=== PATIENT | male | born 1955 | race Caucasian/White ===

== ENCOUNTER 2019-01-19 17:54 | Emergency (ER) | payer BC ==
[2019-01-19 18:26] VITALS: BP 155/93
--- NOTE | 2019-01-19 18:38 | UC ---
General HPI - HPI Summary HPI Summary: Pt presents with c/o of multiple issues. 1. c/o gradual onset of swelling to right side of face and lower lip that began this morning and has progressed throughout the day. The pt denies coming in contact with any know allergen, denies, difficulty swallowing, or breathing. 2. Pt c/o of painful "lump" in between "butt cheeks" that began ~ 2-3 days ago. Pt reports that he recently traveled by airplane to [place] and sat for prolonged periods of time. 3. Pt is concerned that he may have been exposed to a food parasite because he ate undercooked pork while traveling to [place] and has had an episode of diarrhea, fever, and abdominal pain. - History of Current Complaint Chief Complaint: UCGeneralIllness Stated Complaint: SKIN CONCERN,SWOLLEN LIP, FATIGUE Time Seen by Provider: 01/19/19 18:19 Hx Obtained From: Patient Onset/Duration: Gradual Onset, Lasting Days, Still Present Timing: Constant Onset Severity: Mild Current Severity: Moderate Pain Intensity: 1 Associated Signs & Symptoms: Positive: Abdominal Pain, Diarrhea, Other - lower lip swelling, painful mass in gluteal fold/cleft - Allergy/Home Medications Allergies/Adverse Reactions: Allergies Allergy/AdvReac Type Severity Reaction Status Date / Time No Known Allergies Allergy Verified 01/19/19 18:26 Home Medications: Home Medications Multivitamin [Multivitamins] 01/19/19 [History] PMH/Surg Hx/FS Hx/Imm Hx Previously Healthy: Yes - Surgical History Surgical History: Yes Surgery Procedure, Year, and Place: mole removal - Family History Known Family History: Positive: Cardiac Disease - Social History Occupation: Retired Lives: With Family Alcohol Use: None Substance Use Type: None Smoking Status (MU): Never Smoked Tobacco Have You Smoked in the Last Year: No Review of Systems All Other Systems Reviewed And Are Negative: Yes Constitutional: Positive: Fever - resolved Skin: Positive: Negative Eyes: Positive: Negative ENT: Positive: Other - lower lip swelling Respiratory: Positive: Negative Cardiovascular: Positive: Negative Gastrointestinal: Positive: Abdominal Pain, Diarrhea Genitourinary: Positive: Negative Motor: Positive: Negative Neurovascular: Positive: Negative Musculoskeletal: Positive: Negative Neurological: Positive: Negative Psychological: Positive: Negative Is Patient Immunocompromised?: No Physical Exam Triage Information Reviewed: Yes Appearance: Ill-Appearing Vital Signs: Initial Vital Signs Temp 98.7 F 09/27/19 18:17 Pulse 107 01/19/19 18:17 Resp 17 01/19/19 18:17 BP 155/93 01/19/19 18:17 Pulse Ox 97 01/19/19 18:17 Vital Signs Reviewed: Yes Eye Exam: Normal ENT: Positive: Other - lower lip swelling, Dental Exam: Normal Neck exam: Normal Respiratory Exam: Normal Cardiovascular Exam: Normal Abdomen Description: Positive: Nontender Male Genital Exam: Positive: Other - pilondial cyst right upper gluteal fold, non flucuant, Musculoskeletal Exam: Normal Neurological Exam: Normal Psychological Exam: Normal Skin Exam: Other - pilonidal cyst right upper gluteal fold, non flucuant. c/o tenderness with palpation Course/Dx - Differential Dx - Multi-Symptom Differential Diagnoses: Other - pilonidal cyst - Diagnoses Provider Diagnosis: Pilonidal cyst with abscess, Swollen lip Discharge ED - Sign-Out/Discharge Documenting (check all that apply): Patient Departure All imaging exams completed and their final reports reviewed: No Studies - Discharge Plan Condition: Stable Disposition: HOME Prescriptions: Cetirizine* [ZyrTEC 10 MG TAB*] 10 mg PO DAILY #7 tab DOXYcycline CAP(*) [DOXYcycline 100MG CAP(*)] 100 mg PO Q12H #20 cap predniSONE TAB* [Deltasone 10 MG TAB*] 30 mg PO DAILY #12 tab Patient Education Materials: Pilonidal Cyst (ED), Angioedema (ED) Referrals: Gilberto Mina [Primary Care Provider] - As Soon As Possible - Billing Disposition and Condition Condition: STABLE Disposition: Home
[2019-01-19] MEDS ORDERED: predniSONE TAB* 20 MG PO ONE (18:45)
[2019-01-19] MEDS ORDERED: diPHENhydraMINE PO* 25 MG PO ONE (18:46)
== END 2019-01-19 19:08 | disposition home or self-care (01) ==
LOC: UCCORT 17:54
DX: L05.01 Pilonidal cyst with abscess (principal); R22.0 Localized swelling, mass and lump, head
CPT/HCPCS: 99202; A9270-GY; G0463; J7512